=== PATIENT | male | born 1950 | race Caucasian/White ===

== ENCOUNTER 2017-01-05 22:37 | Emergency (ER) | payer MEDICARE ==
[~2017-01-05] VITALS: Ht 175.3 cm; Wt 86.4 kg
[2017-01-05] MEDS ORDERED: PANT40TA25 PO (23:02)
[2017-01-05] MEDS ORDERED: ACYC200C PO (23:02)
[2017-01-05] MEDS ORDERED: TRAZ-147 PO (23:02)
[2017-01-05] MEDS ORDERED: POTA25TA7 PO (23:02)
[2017-01-05] MEDS ORDERED: CEPH500 PO (23:02)
[2017-01-05] MEDS ORDERED: TAMS0.4C32 PO (23:02)
[2017-01-05] MEDS ORDERED: MIRALAX PO (23:02)
[2017-01-05] MEDS ORDERED: FINA5TAB41 PO (23:02)
[2017-01-05] MEDS ORDERED: CARB-38 PO (23:02)
[2017-01-05] MEDS ORDERED: SOTA80 PO (23:02)
[2017-01-05] MEDS ORDERED: MIDO5TAB23 PO (23:02)
[2017-01-05] MEDS ORDERED: FERR-89 PO (23:02)
[2017-01-05 23:09] VITALS: BP 118/81
[2017-01-05 23:18] LABS: APPEARANCE,URINE TURBID (CLEAR); GLUCOSE, URINE (UA) NEGATIVE (NEGATIVE); KETONES,URINE NEGATIVE (NEGATIVE); LEUKOCYTE ESTERASE ,URINE LARGE (NEGATIVE); OCCULT BLOOD,URINE TRACE (NEGATIVE); PH,URINE 8.5 (5.0-8.0); PROTEIN,URINE TRACE (NEGATIVE)
[2017-01-05 23:19] LABS: ADD UA MICROSCOPIC YES
[2017-01-05 23:21] LABS: SQUAMOUS EPITHELIAL CELL,UR Few /LPF (None Seen)
[2017-01-06] MEDS: CIPROFLOXACIN HCL 250 MG TABLET PO ONE (00:13)
== END 2017-01-06 00:42 | disposition home or self-care (01) ==
LOC: EMS 22:39
DX: T83.9XXA Unspecified complication of genitourinary prosthetic device, implant and graft, initial encounter (principal); N39.0 Urinary tract infection, site not specified; I10 Essential (primary) hypertension
CPT/HCPCS: 51702; 87086; 99284

== ENCOUNTER 2017-01-20 01:28 | Emergency (ER) | payer MEDICARE ==
[~2017-01-20] VITALS: Ht 177.8 cm; Wt 101.3 kg
[~2017-01-20 01:28] MED LIST: ACYC200C PO; CARB-38 PO; CEPH500 PO; FERR-89 PO; FINA5TAB41 PO; MIDO5TAB23 PO; MIRALAX PO; PANT40TA25 PO; POTA25TA7 PO; SOTA80 PO; TAMS0.4C32 PO; TRAZ-147 PO
[2017-01-20] MEDS ORDERED: TRAZ150 PO (01:39)
[2017-01-20] MEDS ORDERED: FURO40 PO (01:39)
[2017-01-20] MEDS ORDERED: ALFU10TA30 PO (01:39)
[2017-01-20] MEDS ORDERED: PANT40TA25 PO (01:39)
[2017-01-20] MEDS ORDERED: POTA20TA82 PO (01:39)
[2017-01-20 03:21] LABS: APPEARANCE,URINE CLOUDY (CLEAR); GLUCOSE, URINE (UA) NEGATIVE (NEGATIVE); KETONES,URINE NEGATIVE (NEGATIVE); LEUKOCYTE ESTERASE ,URINE LARGE (NEGATIVE); OCCULT BLOOD,URINE NEGATIVE (NEGATIVE); PH,URINE 8.5 (5.0-8.0); PROTEIN,URINE TRACE (NEGATIVE)
[2017-01-20 03:22] LABS: ADD UA MICROSCOPIC YES
[2017-01-20] MEDS ORDERED: SULFAMETHOX/TRIMETH DS 800-160 MG/TABLET PO ONE (03:30)
[2017-01-20 03:34] LABS: RBC,URINE 0-2 /HPF (0-2)
[2017-01-20 03:35] LABS: SQUAMOUS EPITHELIAL CELL,UR Few /LPF (None Seen)
[2017-01-20 03:57] VITALS: BP 128/88
== END 2017-01-20 04:03 | disposition home or self-care (01) ==
LOC: EMS 01:29
DX: T83.018A Breakdown (mechanical) of other urinary catheter, initial encounter (principal); N39.0 Urinary tract infection, site not specified; I10 Essential (primary) hypertension
CPT/HCPCS: 51702; 87086; 99284

== ENCOUNTER 2017-02-20 18:05 | Emergency (ER) | payer MEDICARE ==
[~2017-02-20] VITALS: Ht 172.7 cm; Wt 77.3 kg
[~2017-02-20 18:05] MED LIST changes: +ALFU10TA30 PO; -CARB-38 PO; -CEPH500 PO; +FURO40 PO; -MIRALAX PO; +POTA20TA82 PO; -POTA25TA7 PO; -SOTA80 PO; -TAMS0.4C32 PO; -TRAZ-147 PO; +TRAZ150 PO
[2017-02-20 19:05] LABS: BASOPHILS # (AUTO) 0.11 K/uL (0.00-0.20); BASOPHILS % (AUTO) 1.7 % (0.0-2.0); EOSINOPHILS # (AUTO) 0.21 K/uL (0.00-0.70); EOSINOPHILS % (AUTO) 3.18 % (1.0-6.0); HEMATOCRIT 36.2 % (41-53); HEMOGLOBIN 11.8 g/dL (13.5-17.5); LYMPHOCYTES # (AUTO) 0.7 K/uL (1.0-4.8); LYMPHOCYTES % (AUTO) 10.8 % (22.0-44.0); MEAN CORPUSCULAR HEMOGLOBIN 28.2 pg (26.0-34.0); MEAN CORPUSCULAR HGB CONC 32.7 G/dL (31.0-37.0); MEAN CORPUSCULAR VOLUME 86 fL (80-100); MONOCYTES # (AUTO) 0.8 K/uL (0.1-1.0); MONOCYTES % (AUTO) 11.5 % (2.0-9.0); NEUTROPHILS # (AUTO) 4.9 K/uL (1.8-7.7); NEUTROPHILS % (AUTO) 72.9 % (40.0-70.0); PLATELET COUNT (AUTO) 335 K/uL (150-450); RED CELL DISTRIBUTION WIDTH 15.4 % (11.5-14.5); WHITE BLOOD COUNT (AUTO) 6.7 K/uL (4.5-11.0)
[2017-02-20 19:21] LABS: PROTHROMBIN TIME 10.7 SEC (9.4-11.6)
[2017-02-20 19:25] LABS: CALCIUM, TOTAL 9.4 mg/dL (8.8-10.5); CREATININE 1.2 mg/dL (0.60-1.30); POTASSIUM 3.9 mmol/L (3.5-5.1)
[2017-02-20 19:38] LABS: ALBUMIN 3.4 g/dL (3.4-5.0); BILIRUBIN,TOTAL 0.2 mg/dL (0.1-1.0); TOTAL PROTEIN, SERUM 6.8 g/dL (6.4-8.2)
[2017-02-20 19:44] LABS: APPEARANCE,URINE TURBID (CLEAR); GLUCOSE, URINE (UA) NEGATIVE (NEGATIVE); KETONES,URINE NEGATIVE (NEGATIVE); OCCULT BLOOD,URINE SMALL (NEGATIVE); PH,URINE 8.5 (5.0-8.0); PROTEIN,URINE POS 1+ (NEGATIVE)
[2017-02-20 19:48] LABS: LEUKOCYTE ESTERASE ,URINE SMALL (NEGATIVE)
[2017-02-20 19:49] LABS: ADD UA MICROSCOPIC YES; TRIPLE PHOSPHATE CRYSTAL,UR Moderate /LPF (None Seen)
[2017-02-20 19:50] LABS: AMORPHOUS SEDIMENT,UR Moderate /LPF (None Seen)
[2017-02-20 21:06] VITALS: BP 116/71
[2017-02-20] MEDS ORDERED: LEVOFLOXACIN 500 MG TABLET PO ONE (21:15)
== END 2017-02-20 21:35 | disposition home or self-care (01) ==
LOC: EMS 18:07
DX: T83.9XXA Unspecified complication of genitourinary prosthetic device, implant and graft, initial encounter (principal); N39.0 Urinary tract infection, site not specified; I10 Essential (primary) hypertension
CPT/HCPCS: 51702; 87086; 99284